=== PATIENT | female | born 1955 | race Caucasian/White ===

== ENCOUNTER 2022-01-13 05:41 | Observation (INO) ==
[~2022-01-13 05:41] MED LIST: Buffered Lidocaine 1% SYRIN 1 ml INTRADERM ONE; HYDROcodone/ACETAMIN 5/325 mg TAB PO PRN; Lactated Ringers 1000 ml BAG 1,000 ML IV SCH; Metoclopramide 5 MG/ML VIAL (10 mg) IV PRN; Naloxone 0.4 mg VIAL 0.4 mg/ml 1 ml VIAL IV PRN; Ondansetron 4 mg VIAL 2 MG/ML 2 ml VIAL IV PRN; fentaNYL 100 mcg/2 ml 50 MCG/ML VIAL IV PRN
[2022-01-13] MEDS ORDERED: ceFAZolin 2 GM in NS PREMIX 2 GM/100 ML BAG IVPB ONE (06:06)
[2022-01-13] MEDS ORDERED: Dexamethasone IV 4 MG/ML VIAL 1 ml VIAL ONE (06:52)
[2022-01-13] MEDS ORDERED: fentaNYL 250 mcg/5 ml 50 MCG/ML 5 ml VIAL (250 MCG) ONE ×2 (06:52→08:33)
[2022-01-13] MEDS ORDERED: Midazolam 2 mg/2 ml VIAL 1 mg/ml 2 ml VIAL (2 mg) ONE (06:52)
[2022-01-13] MEDS ORDERED: Ondansetron 4 mg VIAL 2 MG/ML 2 ml VIAL ONE (06:52)
[2022-01-13] MEDS ORDERED: Hydrocortisone INJ 100 MG/2ML 2 ML VIAL ONE (07:20)
[2022-01-13] MEDS ORDERED: Famotidine IV 10 MG/ML 2 ml VIAL (20 mg) ONE (07:20)
[2022-01-13] MEDS ORDERED: Rocuronium 50 mg VIAL 10 mg/ml 5 ml VIAL (50 mg) ONE (07:22)
[2022-01-13] MEDS ORDERED: Magnesium Hydroxide LIQ 30 ML UDC PO PRN (08:42)
[2022-01-13] MEDS ORDERED: Morphine 2 MG/ML SYRINGE IV PRN (08:42)
[2022-01-13] MEDS ORDERED: Lactulose 30 ml UDC PO PRN (08:42)
[2022-01-13] MEDS ORDERED: Prochlorperazine 5 mg/ml 2 ml VIAL (10 mg) IV PRN (08:57)
[2022-01-13] MEDS ORDERED: Lactated Ringers 1000 ml BAG 1,000 ML IV SCH (09:00)
[2022-01-13] MEDS ORDERED: fentaNYL 100 mcg/2 ml 50 MCG/ML VIAL ONE (09:24)
[2022-01-13] MEDS ORDERED: Phenylephrine IV 10 MG/ML 1 ml VIAL ONE (09:26)
[2022-01-13] MEDS ORDERED: Labetalol IV 5 MG/ML 20 ml VIAL ONE (11:16)
[2022-01-13] MEDS: ceFAZolin 1 GM ADVAN 1 GM in NS 0.9% 50 ML 50 ML IVPB SCH (15:20)
[2022-01-13] MEDS ORDERED: DULoxetine DR 60 mg CAP PO SCH (21:00)
[2022-01-13] MEDS: Magnesium Hydroxide LIQ 30 ML UDC PO SCH (21:37)
[2022-01-14] MEDS: ceFAZolin 1 GM ADVAN 1 GM in NS 0.9% 50 ML 50 ML IVPB SCH ×2 (00:46→08:10)
[2022-01-14] MEDS ORDERED: Calcium Carb (TUMS) 500 mg CHEW TAB PO ONE (00:52)
[2022-01-14 06:06] LABS: Hematocrit 36 % (35-47); Hemoglobin 11.7 g/dL (12.0-16.0); Mean Platelet Volume 7.4 fL (7.4-10.4); Platelet Count 209 10^3/uL (150-450)
[2022-01-14 06:39] LABS: Calcium 8.8 mg/dL (8.6-10.3); Potassium 3.8 mmol/L (3.5-5.0); eGFR CKD-EPI 65.7 (>60)
[2022-01-14] MEDS ORDERED: Vitamin THERAPEUTIC TAB PO SCH (09:00)
[2022-01-14] MEDS: Magnesium Hydroxide LIQ 30 ML UDC PO SCH (09:45)
[2022-01-14 11:59] VITALS: BP 94/53
== END 2022-01-14 14:47 | disposition home or self-care (01) ==
LOC: SSU 05:41 → OR 05:41
PROVIDERS: ADMIT Orthopaedic Surgery Adult Reconstructive Orthopaedic Surgery; ATTEND Orthopaedic Surgery Adult Reconstructive Orthopaedic Surgery